=== PATIENT | male | born 1960 | race Caucasian/White ===

== ENCOUNTER 2016-04-26 10:17 | Emergency (ER) | payer MEDICARE ==
[~2016-04-26] VITALS: Ht 195.6 cm; Wt 128.7 kg
[~2016-04-26 10:17] MED LIST: ALBU8.5H2 IH; ASPI-973 PO; BUPR-97 PO; CYCL10TA9 PO; LIP40 PO; LISI1TAB7 PO; OXYC-466 PO; OXYC1TAB24 PO; UBID100C PO
[2016-04-26 10:26] VITALS: BP 148/102; PULSE 125; RESP 20; O2SAT 97
--- NOTE | 2016-04-26 10:43 | ED.REPORT ---
HPI-Dyspnea / Wheezing Date of Service Apr 26, 2016 ED Provider: Bradly Mendosa MD 56 year old male with a history of HTN, COPD, lung nodules, and asthma who is an everyday smoker presents to the ER complaining of three months of chest heaviness and shortness of breath. He was sent by his primary care provider out of concern for heart failure. Shortness of breath is exacerbated by exertion and laying flat, and relieved by sitting in a reclined position. Associated symptoms include productive cough with white sputum, subjective fever, chills, and dizziness. Patient denies true chest pain, and history of blood clots, PE, or cardiac disease. He was scheduled for lumbar spinal surgery in February 2016, but it was cancelled when he became ill with a cold; he has felt increasingly ill since then. Nursing Notes Stated Complaint: SENT BY DOCTOR Chief Complaint: Respiratory Distress Nursing Notes Reviewed: Yes Allergies: Coded Allergies: codeine (Verified Adverse Reaction, Severe, Nausea,Vomiting,itching,"bumps " on skin, 02/16/16) Scheduled Aspirin (Aspirin) 81 Mg Tablet 81 MG PO DAILY Atorvastatin (Lipitor) 40 Mg Tablet 20 MG PO DAILY Bupropion ER (Wellbutrin XL) 150 Mg Tab.er.24h 150 MG PO DAILY Lisinopril / HCTZ 10-12.5 mg (Lisinopril / HCTZ 10-12.5 mg) 1 Each Tablet 1 EACH PO DAILY Ubidecarenone (Coenzyme Q10) 100 Mg Capsule 100 MG PO DAILY Scheduled PRN Albuterol HFA (Proair HFA) 8.5 Gm Hfa.aer.ad 2 PUFFS IH Q4 PRN PRN For Shortness of Breath Cyclobenzaprine (Cyclobenzaprine) 10 Mg Tablet 10 MG PO TID PRN PRN Spasm oxyCODONE-Acetaminophen 10-325 mg (oxyCODONE-Acetaminophen 10-325 mg) 1 Each Tablet 1-2 TABLET PO Q4-6H PRN PRN For Pain oxyCODONE-Acetaminophen 5-325 mg (oxyCODONE-Acetaminophen 5-325 mg) 1 Each Tablet 1-2 TAB PO Q6H PRN PRN For Pain General Time Seen by MD: 10:35 Chief Complaint Shortness of breath, Other (Chest Heaviness) Hx Obtained From: Patient Arrived By: Walk-in Sudden in Onset?: No Onset Occurred: More than a week ago... (3 months) Symptom Duration: Since onset Location: : Substernal Quality: Heaviness Radiation: : Does not radiate Severity: Current: Moderate Severity: Maximum: Moderate Associated with: Reports: Cough, Fever Pertinent Negative: Pt denies other symptoms Exacerbated by: Activity, Lying flat Relieved by: Sitting up, Sleeping on pillows Context Related History: Reports: COPD Asthma History: Asthma diagnosed Recent Healthcare: Recent doctor visit Similar Sx Previous: No Risk Factors Well's Criteria for PE HR > 100 (1.5) Well's PE Score: 0-2 pts (low risk 3.6%) Past Medical History Past Medical History Lung nodules Reports: Asthma, COPD, GERD, Hyperlipidemia, Hypertension, Denies: Cancer, Congestive heart failure, Coronary artery disease Denies: Atrial fibrillation, Kidney disease, Thyroid disease Past Surgical History Left Rotator Cuff ACDF Smoking History Current Every Day Smoker Review of Systems Review of Systems Note: +Chest Heaviness Constitutional: Reports: Chills, Fever (Subjective) Respiratory: Reports: Prod cough, white, Shortness of breath Cardiovascular: Denies: Chest pain, Palpitations Musculoskeletal: Reports: Lumbar pain, Denies: Extremity pain, Neck pain Complete sys rev & neg: except as marked. Neurologic: Reports: Dizziness Physical Exam Initial Vital Signs Vital Signs (First) Date Time Temp Pulse Resp B/P Pulse Ox O2 Delivery O2 Flow Rate FiO2 04/26/16 10:26 36.2 125 20 148/102 97 Room Air Initial VS: Reviewed Head / Eyes: Atraumatic, Normocephalic Abdomen / GI: Soft, Non-tender, No guarding, No rebound, No distention Extremities: Vascular intact, Neuro intact, No swelling, No tenderness Skin: Warm, Dry, No cyanosis Neurologic: Alert, Oriented, Nonfocal Psychiatric: Mood/affect normal, Behavior normal, Normal thought content General/Constitutional: Awake, Alert, Well developed, Well nourished Neck: Atraumatic, Supple, No meningismus, Full range of motion, No swelling, Non-tender, No masses Respiratory / Chest: No rales, No rhonchi Wheezing / Retractions: Positive: Wheeze insp/exp diffuse (Expiratory louder than inspiratory), Wheezing moderate Cardiovascular: Regular rhythm, No murmurs Heart Rate / Rhythm: Positive: Tachycardia Interpretation & Diagnostics Lab Results Interpretation Result Diagram: 04/26/16 1050 04/26/16 1050 Test 04/26/16 10:50 04/26/16 12:45 White Blood Count 13.6th/mm3 (3.8-10.1) Red Blood Count 5.04mil/mm3 (4.40-5.80) Hemoglobin 15.2g/dL (13.8-17.2) Hematocrit 45.1% (41.0-50.0) Mean Corpuscular Volume 89.5fL (81-100) Mean Corpuscular Hemoglobin 30.2pg (27.0-35.0) Mean Corpuscular Hemoglobin Concent 33.7% (32.0-37.0) Red Cell Distribution Width 13.5% (12.3-15.4) Platelet Count 230bil/L (150-400) Neutrophils (%) (Auto) 59.6% (40-74) Lymphocytes (%) (Auto) 27.6% (14-46) Monocytes (%) (Auto) 10.7% (4-12) Eosinophils (%) (Auto) 1.0% (0-5) Basophils (%) (Auto) 0.4% (0-3) D-Dimer < 0.5mg/L (<0.50) Sodium Level 139mEq/L (134-144) Potassium Level 3.6mEq/L (3.5-5.2) Chloride Level 100mEq/L (97-108) Carbon Dioxide Level 22mmol/L (18-29) Blood Urea Nitrogen 14mg/dL (6-24) Creatinine 1.07mg/dL (0.76-1.27) Estimat Glomerular Filtration Rate 76mL/min (>59) Glucose Level 86mg/dL (60-99) Calcium Level 9.1mg/dL (8.5-10.1) Magnesium Level 2.2mg/dL (1.6-2.6) Total Bilirubin 0.6mg/dL (0.0-1.2) Aspartate Amino Transf (AST/SGOT) 21U/L (0-50) Alanine Aminotransferase (ALT/SGPT) 55U/L (0-44) Alkaline Phosphatase 71U/L (25-150) Troponin T 0.010ug/L (0.0-0.011) Pro-B-Type Natriuretic Peptide 32.39pg/mL (0-210) Total Protein 7.3g/dL (6.4-8.4) Albumin 4.6g/dL (3.4-5.0) Urine Color Straw (YELLOW) Urine Appearance Hazy (CLEAR,HAZY) Urine pH 6.0 (5.0-8.0) Urine Specific Ucon 1.015 (1.003-1.035) Urine Protein Negativemg/dL (NEG,TRACE) Urine Glucose (UA) Negativemg/dL (NEGATIVE) Urine Ketones Negativemg/dL (NEGATIVE) Urine Occult Blood Negative (NEGATIVE) Urine Nitrite Negative (NEGATIVE) Urine Bilirubin Negative (NEGATIVE) Urine Urobilinogen Normalmg/dL (NORMAL) Urine Leukocyte Esterase Negative (NEGATIVE) Urine RBC 0-2/hpf (0-2) Urine WBC 0-5/hpf (0-5) Urine Epithelial Cells Occasional/hpf (NONE-MOD) Urine Crystals None seen (NONE SEEN) Urine Bacteria None/hpf (NONE-FEW) Urine Hyaline Casts None/lpf (NONE) Urine Granular Casts None seen (NONE SEEN) Urine Waxy Casts None seen (NONE SEEN) Urine Red Blood Cell Casts None seen (NONE SEEN) Urine White Blood Cell Casts None seen (NONE SEEN) Urine Mucus None seen (None Seen) Urine Trichomonas None seen (NONE SEEN) Urine Yeast None (NONE SEEN) Urinalysis Comment None Urine Culture Reflexed Not indicated ECG Interpretation ECG Interpretation: Sinus tachycardia, rate 113 Time: 12:11 Interpreted by: ED physician X-Ray Chest Interpretation Chest Xray Interpretation: IMPRESSION: Lordotic positioning, no definite source of shortness of breath is seen. Dictated by: Reji Goodwin M.D. on 04/26/2016 at 11:12 Approved by: Reji Goodwin M.D. on 04/26/2016 at 11:13 View: Portable, 1 view Interpretation / Wet Read by: Interpret - Radiologist Re-Eval/Medical Decision Med Decision/Clinical Course This gentleman is back to baseline now, 1344, he says that he feels entirely well other than the cough and congestion he has been dealing with for the past couple of months. I believe that his symptoms most right likely related to chronic cough and chronic bronchitis. We will try a course of doxycycline. Follow up next week. Source of Hx: Old records Re-Evaluation/Progress : Time of Eval: 13:39 Re-Evaluation/Progress Note: Discussed lab and radiology results and plan to discharge. Patient is amenable to the plan. Return precautions given. All other questions addressed. Counseled Regarding: Diagnosis, Lab results, Need for follow-up, When/why to return to ED Discharge & Departure Impression: Primary Impression: Chronic cough Disposition: Home Discharge Condition All VS Reviewed: Yes Condition: Stable Patient Instructions: Upper Respiratory Infection (ED) Additional Instructions: No evidence of congestive heart failure or heart attack or other immediately dangerous chest condition. I believe you probably have chronic bronchitis. I recommend doxycycline twice daily for 10 days and follow up next week at the clinic. Referrals: Sharif Ellis DO (PCP) [place] Attestation Portions of this note were transcribed by Marli Knight. I, Dr. Mendosa, personally performed the history, physical exam and medical decision-making; I reviewed and confirmed the accuracy of the information in the transcribed note. Signed by: Mati Stanley, 04/26/2016 and 13:39 copies to: Sharif Ellis DO Brownell, Kirk H MD Apr 26, 2016 10:43 MARLI KNIGHT Apr 26, 2016 10:45
[2016-04-26 11:08] LABS: BASOPHILS % (AUTO) 0.4 % (0-3); MONOCYTES % (AUTO) 10.7 % (4-12); Mean Corpuscular Hemoglobin 30.2 pg (27.0-35.0); Mean Corpuscular Volume 89.5 fL (81-100); NEUTROPHILS % (AUTO) 59.6 % (40-74); Platelet Count 230 bil/L (150-400)
[2016-04-26 11:13] VITALS: BP 175/95; PULSE 105; RESP 12; O2SAT 99
--- NOTE | 2016-04-26 11:14 | DRSVH ---
PROCEDURE: X-RAY CHEST ONE VIEW, PORTABLE ([id number]) INDICATIONS: SHORTNESS OF BREATH TECHNIQUE: One view of the chest was acquired. COMPARISON: None. FINDINGS: Surgical changes and devices: None. Lungs and pleura: No pleural effusions or pneumothorax. Lungs are clear. Mediastinum: Mediastinal contours appear normal. Heart size is normal. Bones and chest wall: No suspicious bony lesions. Overlying soft tissues appear unremarkable. IMPRESSION: Lordotic positioning, no definite source of shortness of breath is seen. Dictated by: Reji Goodwin M.D. on 04/26/2016 at 11:12 Approved by: Reji Goodwin M.D. on 04/26/2016 at 11:13
[2016-04-26 11:29] LABS: TROPONIN T 0.01 ug/L (0.0-0.011)
[2016-04-26 11:40] LABS: Magnesium 2.2 mg/dL (1.6-2.6)
[2016-04-26 13:06] LABS: APPEARANCE,URINE HAZY (CLEAR,HAZY); COLOR,URINE STRAW (YELLOW); OCCULT BLOOD,URINE NEGATIVE (NEGATIVE); UROBILINOGEN,URINE NORMAL (NORMAL)
[2016-04-26 13:32] VITALS: BP 131/72; PULSE 85; RESP 15; O2SAT 97
[2016-04-26] MEDS ORDERED: DOXY100T2 PO (13:48)
[2016-04-26 14:07] VITALS: BP 149/80; PULSE 87; RESP 14; O2SAT 97
== END 2016-04-26 13:48 | disposition home or self-care (01) ==
LOC: SED 10:17
DX: R05 Cough (principal); J45.909 Unspecified asthma, uncomplicated; I48.91 Unspecified atrial fibrillation; J44.9 Chronic obstructive pulmonary disease, unspecified; K21.9 Gastro-esophageal reflux disease without esophagitis; I10 Essential (primary) hypertension; E78.5 Hyperlipidemia, unspecified; Z79.82 Long term (current) use of aspirin; Z88.5 Allergy status to narcotic agent; F17.200 Nicotine dependence, unspecified, uncomplicated